=== PATIENT | female | born 1965 | race Caucasian/White ===

== ENCOUNTER → 2023-07-13 | Outpatient (CLI) | payer BC, OTHER ==
[~2023-07-13] VITALS: Ht 172.7 cm; Wt 93.2 kg
[~2023-07-13] MED LIST: LIDOCAINE 1% INJ 10 ML VIAL INJ ONE; LIDOCAINE 1% INJ 10 ML VIAL ONE
--- NOTE | 2023-07-13 20:05 | Diagnostic Imaging Report ---
INDICATION: Left breast mass. Patient presents for ultrasound-guided biopsy. Patient brought to the ultrasound suite and placed on the table in the supine position. Ultrasound imaging of the left breast was performed to evaluate appropriate entry site. The left breast was then prepped and draped in usual sterile fashion. Small amount 1% lidocaine was utilized for local anesthesia. A total of 4 core biopsies were obtained of the hypoechoic solid mass at the 12 o'clock location left breast utilizing a 14-gauge Achieve needle. A marker clip was then deployed. Hemostasis was obtained using manual compression. Patient tolerated the procedure well and was sent for post procedure mammogram in satisfactory condition. Post procedure mammogram was performed on dedicated mammographic equipment. IMPRESSION: Successful ultrasound-guided core biopsy of left breast nodule 12 o'clock location. Pathology results are currently pending. Dictated by: Dictated on workstation # [id number]
--- NOTE | 2023-07-13 20:11 | Diagnostic Imaging Report ---
INDICATION: Left breast nodule, status post ultrasound guided left breast biopsy. Unilateral left 2-D CC and ML mammography was performed after patient underwent ultrasound-guided left breast biopsy. There is a marker clip in the upper left breast mid depth, status post biopsy. IMPRESSION: Marker clip placement, status post ultrasound guided biopsy, as described. Dictated by: Dictated on workstation # [id number]
== END ==
LOC: RAD 12:59
PROVIDERS: ATTEND Family Medicine
DX: N63.20 Unspecified lump in the left breast, unspecified quadrant (principal); Z98.82 Breast implant status
CPT/HCPCS: 19083; 77065; A4648; G0279